=== PATIENT | female | born 1985 | race Hispanic/Latino ===

== ENCOUNTER 2022-02-12 01:38 | Inpatient (IN) | payer BC ==
[2022-02-11 15:47] LABS: #Monocytes 0.6 10x3/uL (0.0-1.1); #Neutrophils 3.8 10x3/uL (1.5-8.4); %Basophils 0.3 % (0.0-2.0); %Eosinophils 0.3 % (0.0-6.0); %Lymphocytes 31.6 % (18.0-47.0); %Monocytes 8.8 % (0.0-10.0); %Neutrophils 58.5 % (40.0-75.0); Hemoglobin 12.5 g/dL (12.0-15.5); Mean Corpuscular HGB CONC 33.6 g/dL (32.0-36.0); Mean Corpuscular Hemoglobin 30.5 pg (27.0-33.0); Mean Corpuscular Volume 90.7 fl (81.6-98.3); Mean Platelet Volume 12.5 fl (7.4-10.4); Platelet Count 200 10x3/uL (150-450); RBC Distribution Width 15.5 % (11.5-14.5); White Blood Cell (WBC) Count 6.5 10x3/uL (3.5-10.5)
[2022-02-11 16:18] LABS: Hep B Surf Ag Non-Reactive S/CO (NonReactive); Syphilis Antibody Nonreactive (Nonreactive); Syphilis Antibody Index 0.04 S/CO (<1.00 Non-Reactive)
[2022-02-11 16:20] LABS: HBSAg Index 0.15 S/CO (0-0.99)
[2022-02-11 23:45] LABS: SARS-CoV-2 PCR by NAA Not Detected (NotDetected)
[2022-02-12 03:09] VITALS: BMI 31.2
[2022-02-12] MEDS ORDERED: ceFAZolin 2 GM/Dextrose 50 ML IVPB ONE (07:18)
[2022-02-12] MEDS ORDERED: Famotidine/PF 20 mg/2ml Vial ONE (07:19)
[2022-02-12] MEDS ORDERED: Azithromycin 500 MG VIAL ONE (07:19)
[2022-02-12] MEDS ORDERED: Azithromycin 500 MG in Sodium Chloride 0.9% 250 ML 250 ML IVPB SCH (08:00)
[2022-02-12] MEDS ORDERED: Famotidine/PF 20 mg/2ml Vial SLOW IVP SCH (08:00)
[2022-02-12] MEDS ORDERED: Lactated Ringer's 1,000 ML IV SCH (08:00)
[2022-02-12] MEDS ORDERED: ceFAZolin 2 GM/Dextrose 50 ML 2 GM in Premix Bag 1 BAG IVPB SCH (08:00)
[2022-02-12] MEDS ORDERED: Carboprost 250 MCG/ML AMP ONE (10:21)
[2022-02-12] MEDS ORDERED: Methylergonovine 0.2 MG/ML VIAL ONE (10:21)
[2022-02-12] MEDS ORDERED: Misoprostol 200 MCG TAB ONE (10:22)
[2022-02-12] MEDS ORDERED: Meperidine HCl/PF 25 MG/ML VIAL SLOW IVP PRN (11:54)
[2022-02-12] MEDS ORDERED: Fentanyl 100 MCG/2 ML VIAL SLOW IVP PRN (11:54)
[2022-02-12] MEDS ORDERED: Hydrocerin (Eucerin) Cream 120 gm Jar TOP PRN (11:54)
[2022-02-12] MEDS ORDERED: Ondansetron HCl/PF 4 MG/2 ML Vial IVP PRN (11:54)
[2022-02-12] MEDS ORDERED: Naloxone HCl 0.4 mg/ml Vial IV PRN (11:54)
[2022-02-12] MEDS ORDERED: Ondansetron PF 4 MG/2 ML Vial IVP PRN ×2 (11:54→14:06)
[2022-02-12] MEDS ORDERED: Naloxone HCl 0.4 mg/ml Vial IVP PRN ×2 (11:54)
[2022-02-12] MEDS ORDERED: Promethazine HCl 25 MG SUPP PR PRN (11:54)
[2022-02-12] MEDS ORDERED: diphenhydrAMINE 50 MG/ML VIAL IVP PRN (11:54)
[2022-02-12] MEDS ORDERED: Promethazine HCl 25 MG/ML VIAL IM PRN (11:54)
[2022-02-12] MEDS ORDERED: Ketorolac Tromethamine 30 MG/ML VIAL IVP SCH (12:00)
[2022-02-12] MEDS ORDERED: Communication Order-Pharmacy FS SCH (12:00)
[2022-02-12] MEDS ORDERED: Meperidine HCl/PF 25 MG/ML VIAL ONE (13:59)
[2022-02-12] MEDS ORDERED: diphenhydrAMINE 25 MG CAP PO PRN (14:06)
[2022-02-12] MEDS ORDERED: hydrALAZINE 20 MG/ML VIAL SLOW IVP PRN (14:06)
[2022-02-12] MEDS ORDERED: Bisacodyl 10 MG SUPP PR PRN (14:06)
[2022-02-12] MEDS ORDERED: Acetaminophen 325 MG TAB PO PRN (14:06)
[2022-02-12] MEDS: Ketorolac Tromethamine 30 MG/ML VIAL IVP PRN ×2 (18:32→23:58)
[2022-02-12] MEDS: Ferrous Sulfate 325 MG TAB PO SCH (20:52)
[2022-02-12] MEDS: Ibuprofen 800 MG TAB PO SCH (21:50)
[2022-02-12] MEDS: Docusate 100 MG CAP PO SCH (21:50)
[2022-02-13] MEDS: HYDROcodone/Acetaminophen 5/325 mg Tablet PO PRN ×5 (04:11→23:21)
[2022-02-13 05:20] LABS: Hemoglobin 10.1 g/dL (12.0-15.5); Mean Corpuscular Hemoglobin 30.3 pg (27.0-33.0); Mean Corpuscular Volume 89.2 fl (81.6-98.3); Mean Platelet Volume 12.2 fl (7.4-10.4); Platelet Count 153 10x3/uL (150-450); RBC Distribution Width 15.3 % (11.5-14.5); Red Blood Cell (RBC) Count 3.33 10x6/uL (3.90-5.03); White Blood Cell (WBC) Count 10.3 10x3/uL (3.5-10.5)
[2022-02-13] MEDS: Ketorolac Tromethamine 30 MG/ML VIAL IVP PRN (05:41)
[2022-02-13] MEDS: Ibuprofen 800 MG TAB PO SCH ×3 (06:05→22:17)
[2022-02-13] MEDS: Docusate 100 MG CAP PO SCH ×2 (08:21→22:17)
[2022-02-13] MEDS: Prenatal Vitamin 1 TAB PO SCH (08:24)
[2022-02-13] MEDS: Simethicone Chewable 80 MG TAB PO PRN ×3 (08:24→19:07)
[2022-02-13] MEDS: Ferrous Sulfate 325 MG TAB PO SCH ×2 (08:27→22:15)
[2022-02-13] MEDS ORDERED: Boostrix 0.5 ML (Tdap) VIAL IM ONE (14:06)
[2022-02-14] MEDS: HYDROcodone/Acetaminophen 5/325 mg Tablet PO PRN ×5 (03:37→23:07)
[2022-02-14] MEDS: Ibuprofen 800 MG TAB PO SCH ×3 (05:14→21:12)
[2022-02-14] MEDS: Docusate 100 MG CAP PO SCH ×2 (08:30→21:12)
[2022-02-14] MEDS: Prenatal Vitamin 1 TAB PO SCH (08:30)
[2022-02-14] MEDS: Simethicone Chewable 80 MG TAB PO PRN ×4 (08:30→21:12)
[2022-02-14] MEDS: Ferrous Sulfate 325 MG TAB PO SCH ×2 (12:08→21:00)
[2022-02-15] MEDS: Ibuprofen 800 MG TAB PO SCH ×3 (05:22→21:21)
[2022-02-15] MEDS: HYDROcodone/Acetaminophen 5/325 mg Tablet PO PRN ×4 (05:23→20:19)
[2022-02-15] MEDS: Prenatal Vitamin 1 TAB PO SCH (08:43)
[2022-02-15] MEDS: Docusate 100 MG CAP PO SCH ×2 (08:43→21:21)
[2022-02-15] MEDS: Simethicone Chewable 80 MG TAB PO PRN ×2 (10:13→15:13)
[2022-02-15] MEDS: Ferrous Sulfate 325 MG TAB PO SCH ×2 (10:50→19:25)
[2022-02-16] MEDS: HYDROcodone/Acetaminophen 5/325 mg Tablet PO PRN ×2 (00:22→05:56)
[2022-02-16] MEDS: Ibuprofen 800 MG TAB PO SCH (05:56)
[2022-02-16 08:12] VITALS: BP 117/72; TEMP 98.3
[2022-02-16] MEDS: Simethicone Chewable 80 MG TAB PO PRN (09:01)
[2022-02-16] MEDS: Prenatal Vitamin 1 TAB PO SCH (09:01)
[2022-02-16] MEDS: Docusate 100 MG CAP PO SCH (09:01)
[2022-02-16] MEDS: Ferrous Sulfate 325 MG TAB PO SCH (09:03)
== END 2022-02-16 11:48 | disposition home or self-care (01) | DRG 784 ==
LOC: CSHLD/OP 01:38 → CSHLD 02:17 → CSHPP 14:29
PROVIDERS: ADMIT Obstetrics & Gynecology; ATTEND Obstetrics & Gynecology
PROC: 10D00Z1 Extraction of Products of Conception, Low, Open Approach (ICD-10-PCS; principal; 2022-02-12)
PROC: 0UT70ZZ Resection of Bilateral Fallopian Tubes, Open Approach (ICD-10-PCS; 2022-02-12)
DX: O42.02 Full-term premature rupture of membranes, onset of labor within 24 hours of rupture (principal); O98.52 Other viral diseases complicating childbirth; O34.211 Maternal care for low transverse scar from previous cesarean delivery; Z20.822 Contact with and (suspected) exposure to COVID-19; Z3A.38 38 weeks gestation of pregnancy; Z37.0 Single live birth; Z79.82 Long term (current) use of aspirin; O24.429 Gestational diabetes mellitus in childbirth, unspecified control; Z80.41 Family history of malignant neoplasm of ovary; B00.9 Herpesviral infection, unspecified
CPT/HCPCS: 51702; 85025; 85027; 86780; 86850; 86900; 86901; 87340; 88307; 96372; 99285; J0456; J0690; J1885; J2175; J2405; S0028; U0003; U0005